=== PATIENT | female | born 1985 | race Caucasian/White ===

== ENCOUNTER 2017-09-19 13:29 | Inpatient (IN) | payer BC ==
[2017-09-19] MEDS ORDERED: Ampicillin 2 GM in Sodium Chloride 0.9% 100 ML IV ONE (17:00)
[2017-09-19] MEDS ORDERED: Nalbuphine 20 MG/ML 1 ML Syringe IVPUSH PRN (17:40)
[2017-09-19] MEDS ORDERED: Sodium Chloride 0.9% 10 ML Syringe FLUSH PRN (17:40)
[2017-09-19] MEDS ORDERED: Ondansetron 4 MG/2 ML SDV IVPUSH PRN (17:40)
[2017-09-19] MEDS ORDERED: Oxytocin/Lactated Ringers 10 UNIT/1,000 ML BAG IV SCH ×2 (17:45)
--- NOTE | 2017-09-19 17:45 | PCM.LDHP ---
L&D History of Present Illness - General Date of Service: 09/19/17 Admit Problem/Dx: Patient Status Order with Admit Dx/Problem 09/19/17 14:08 Patient Status [ADT] Routine 09/19/17 17:40 Patient Status [ADT] Routine Admission Diagnosis/Problem Admission Diagnosis/Problem complications Source of Information: Patient History Limitations: Reports: No Limitations - History of Present Illness Introduction:: Patient is a 31 y/o at 39 0/7 wks who presents for further monitoring. Called into clinic today reporting feeling unwell. Had some vision changes in the AM and general malaise. Was asked to present to clinic for further evaluation. Initial BP's in clinic were 140/100 and 148/104. She was thus sent to L&D for further monitoring. 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 LMP (Approximate): Endocrine/Metabolic History: Reports: Diabetes, Gestational Social & Family History - Tobacco Use Smoking Status *Q: Never Smoker - Alcohol Use Alcohol Use History: No - Recreational Drug Use Recreational Drug Use: No H&P Review of Systems - Review of Systems: Review Of Systems: See Below General: Reports: Malaise HEENT: Reports: Visual Changes Pulmonary: Reports: No Symptoms Cardiovascular: Reports: No Symptoms Gastrointestinal: Reports: No Symptoms Genitourinary: Reports: No Symptoms Musculoskeletal: Reports: No Symptoms Psychiatric: Reports: No Symptoms Neurological: Reports: No Symptoms L&D Exam - Exam Exam: See Below - Vital Signs Weight: 94.886 kg - OB Specific Contraction Intensity: Irritability Movement: Active Heart Tones: Present Heart Tones per Min: 135 Heart Rate (FHR) Variability: Moderate (6-25 bmp) Presentation: Vertex - Sue Score Sue Score Cervix Position: Midposition Sue Score Consistency: Soft Sue Score Effacement: 51-70% Sue Score Dilation: 1-2 cm Sue Score Infant's Station: -2 Sue Score Total: 7 - Exam General: Alert, Oriented, Cooperative Lungs: Clear to Auscultation, Normal Respiratory Effort Cardiovascular: Regular Rate, Regular Rhythm GI/Abdominal Exam: Soft, Non-Tender Genitourinary: Normal external exam Extremities: Normal Inspection Skin: Warm, Dry, Intact DTR: 2+: Patella (L), Patella (R) - Patient Data Lab Results Last 24 hrs: Laboratory Results - last 24 hr 09/19/17 09/19/17 09/19/17 Range/Units 14:20 14:20 15:31 WBC 6.32 (3.98-10.04) K/mm3 RBC 3.83 L (3.98-5.22) M/mm3 Hgb 11.9 (11.2-15.7) gm/L Hct 35.5 (34.1-44.9) % MCV 92.7 (79.4-94.8) fl MCH 31.1 (25.6-32.2) pg MCHC 33.5 (32.2-35.5) g/dl RDW Std Deviation 43.9 (36.4-46.3) fL Plt Count 185 (182-369) K/mm3 MPV 9.6 (9.4-12.3) fl Neut % (Auto) 61.2 (34.0-71.1) % Lymph % (Auto) 27.2 (19.3-51.7) % [place] % (Auto) 9.0 (4.7-12.5) % Eos % (Auto) 2.1 (0.7-5.8) Baso % (Auto) 0.2 (0.1-1.2) % Neut # (Auto) 3.87 (1.56-6.13) K/mm3 Lymph # (Auto) 1.72 (1.18-3.74) K/mm3 [place] # (Auto) 0.57 H (0.24-0.36) K/mm3 Eos # (Auto) 0.13 (0.04-0.36) K/mm3 Baso # (Auto) 0.01 (0.01-0.08) K/mm3 BUN 12 (7-18) mg/dL Creatinine 0.6 (0.55-1.02) mg/dL Est Cr Clr Drug Dosing 123.37 mL/min Estimated GFR (MDRD) > 60 (>60) mL/min Uric Acid 5.5 (2.6-6.0) mg/dL AST 30 (15-37) U/L ALT 21 (14-59) U/L Lactate Dehydrogenase 216 (81-234) U/L Urine Color Light yellow (Yellow) Urine Appearance Clear (Clear) Urine pH 7.0 (5.0-8.0) Ur Specific [place] 1.015 (1.005-1.030) Urine Protein Negative (Negative) Urine Glucose (UA) Negative (Negative) Urine Ketones Negative (Negative) Urine Occult Blood Negative (Negative) Urine Nitrite Negative (Negative) Urine Bilirubin Negative (Negative) Urine Urobilinogen 0.2 (0.2-1.0) Ur Leukocyte Esterase Negative (Negative) Result Diagrams: 09/19/17 14:20 09/19/17 14:20 - Problem List (1) 39 weeks gestation of SNOMED Code(s): 04942930 ICD Code: Z3A.39 - 39 WEEKS GESTATION OF Status: Acute Current Visit: Yes (2) Elevated blood pressure affecting in third trimester, antepartum SNOMED Code(s): 41837910, 84589272, 371508844 ICD Code: O16.3 - UNSPECIFIED MATERNAL HYPERTENSION, THIRD TRIMESTER Status : Acute Current Visit: Yes Problem List Initiated/Reviewed/Updated: Yes Orders Last 24hrs: Active Orders 24 hr Category Date Time Status Patient Status [ADT] Routine ADT 09/19/17 14:08 Active Patient Status [ADT] Routine ADT 09/19/17 17:40 Ordered Communication Order [RC] ASDIRECTED Care 09/19/17 17:40 Ordered Communication Order [RC] ASDIRECTED Care 09/19/17 17:40 Ordered Communication Order [RC] ASDIRECTED Care 09/19/17 17:40 Ordered Monitoring [RC] CONTINUOUS Care 09/19/17 14:09 Active Monitoring [RC] INTERMITTENT Care 09/19/17 17:40 Ordered Non Stress Test [RC] PER UNIT ROUTINE Care 09/19/17 14:08 Active Notify Provider [RC] ASDIRECTED Care 09/19/17 17:40 Ordered Notify Provider [RC] PRN Care 09/19/17 17:40 Ordered Peripheral IV Care [RC] . DIRECTED Care 09/19/17 17:41 Ordered Up ad Nubia [RC] ASDIRECTED Care 09/19/17 14:09 Active Up ad Nubia [RC] ASDIRECTED Care 09/19/17 17:41 Ordered Vaginal Exam [RC] ASDIRECTED Care 09/19/17 17:40 Ordered Vital Signs [RC] ASDIRECTED Care 09/19/17 17:40 Ordered Vital Signs [RC] PER UNIT ROUTINE Care 09/19/17 14:08 Active Clear Liquid Diet [DIET] Diet 09/19/17 Dinner Active Regular Diet [DIET] Diet 09/19/17 Dinner Ordered UA W/O MICROSCOPIC [URIN] Urgent Lab 09/19/17 15:31 Ordered Ampicillin 1 gm Med 09/19/17 17:45 Ordered Sodium Chloride 0.9% [Normal Saline] 100 ml IV Q4H Ampicillin 2 gm Med 09/19/17 17:40 Ordered Sodium Chloride 0.9% [Normal Saline] 100 ml IV ONETIME Lactated Ringers [Ringers, Lactated] 1,000 ml Med 09/19/17 17:45 Ordered IV ASDIRECTED Nalbuphine [Nubain] Med 09/19/17 17:40 Ordered 10 mg IVPUSH Q2H PRN Ondansetron [Zofran] Med 09/19/17 17:40 Ordered 4 mg IVPUSH Q4H PRN Oxytocin/Lactated Ringers [Pitocin in LR 10 Units/1,000 Med 09/19/17 17:45 Ordered ML] 10 unit in 1,000 ml IV .CONTINUOUS Oxytocin/Lactated Ringers [Pitocin in LR 10 Units/1,000 Med 09/19/17 17:45 Ordered ML] 10 unit in 1,000 ml IV TITRATE Oxytocin/Lactated Ringers [Pitocin in LR 10 Units/1,000 Med 09/19/17 17:45 Ordered ML] 10 unit in 1,000 ml IV TITRATE Sodium Chloride 0.9% [Saline Flush] Med 09/19/17 17:40 Ordered 10 ml FLUSH ASDIRECTED PRN PIH Panel [OM.PC] Stat Oth 06/21/18 14:08 Ordered Peripheral IV Insertion Adult [OM.PC] Routine Oth 09/19/17 17:40 Ordered Resuscitation Status Routine Resus Stat 09/19/17 14:08 Ordered Medication Orders Ampicillin Sodium 2 gm/ Sodium (Chloride) 100 mls @ 200 mls/hr IV ONETIME ONE Stop: 09/19/17 18:09 Lactated Ringer's (Ringers, Lactated) 1,000 mls @ 40 mls/hr IV ASDIRECTED SEEMA Oxytocin/Lactated Ringer's (Pitocin In Lr 10 Units/1,000 Ml) 10 unit in 1,000 mls @ 12 mls/hr IV TITRATE SEEMA; Protocol Ampicillin Sodium 1 gm/ Sodium (Chloride) 100 mls @ 200 mls/hr IV Q4H SEEMA Oxytocin/Lactated Ringer's (Pitocin In Lr 10 Units/1,000 Ml) 10 unit in 1,000 mls @ 500 mls/hr IV .CONTINUOUS SEEMA Oxytocin/Lactated Ringer's (Pitocin In Lr 10 Units/1,000 Ml) 10 unit in 1,000 mls @ 12 mls/hr IV TITRATE SEEMA; Protocol Nalbuphine HCl (Nubain) 10 mg IVPUSH Q2H PRN PRN Reason: Pain (moderate 4-6) Ondansetron HCl (Zofran) 4 mg IVPUSH Q4H PRN PRN Reason: Nausea/Vomiting Sodium Chloride (Saline Flush) 10 ml FLUSH ASDIRECTED PRN PRN Reason: Keep Vein Open Assessment/Plan Comment:: 31 y/o presents to L&D after complaints of feeling unwell in clinic and findings of mild range BP's. Labs done and WNL. BP's upper limit of normal with rare mild range BP. Reviewed findings. Feel that at this time it would be best for patient to stay for IOL. She agrees. Will start ampicillin for GBS prophylaxis and pitocin. AROM when able. Pain management per patient preference. Anticipate Laila Cho MD
[2017-09-19] MEDS: Oxytocin/Lactated Ringers 10 UNIT/1,000 ML BAG IV SCH (19:06)
[2017-09-19] MEDS: Lactated Ringers 1,000 ML IV SCH ×2 (19:06→22:39)
[2017-09-19] MEDS: Ampicillin 1 GM in Sodium Chloride 0.9% 100 ML IV SCH (23:06)
--- NOTE | 2017-09-20 00:54 | PCM.PNLD ---
Labor Progress Note - VS & Meds Vital Signs: Last Vital Signs Temp 36.9 C 09/19/17 20:18 Pulse 76 09/19/17 20:18 Resp 18 09/19/17 20:18 BP 130/65 09/19/17 20:18 Pulse Ox Active Medications: Current Medications Lactated Ringer's (Ringers, Lactated) 1,000 mls @ 40 mls/hr IV ASDIRECTED SEEMA Last Admin: 09/19/17 22:39 Dose: 40 mls/hr Oxytocin/Lactated Ringer's (Pitocin In Lr 10 Units/1,000 Ml) 10 unit in 1,000 mls @ 12 mls/hr IV TITRATE SEEMA; Protocol Last Titration: 09/19/17 23:31 Dose: 18 munits/min, 108 mls/hr Ampicillin Sodium 1 gm/ Sodium (Chloride) 100 mls @ 200 mls/hr IV Q4H SEEMA Last Admin: 09/19/17 23:06 Dose: 200 mls/hr Oxytocin/Lactated Ringer's (Pitocin In Lr 10 Units/1,000 Ml) 10 unit in 1,000 mls @ 500 mls/hr IV .CONTINUOUS SEEMA Oxytocin/Lactated Ringer's (Pitocin In Lr 10 Units/1,000 Ml) 10 unit in 1,000 mls @ 12 mls/hr IV TITRATE SEEMA; Protocol Nalbuphine HCl (Nubain) 10 mg IVPUSH Q2H PRN PRN Reason: Pain (moderate 4-6) Ondansetron HCl (Zofran) 4 mg IVPUSH Q4H PRN PRN Reason: Nausea/Vomiting Sodium Chloride (Saline Flush) 10 ml FLUSH ASDIRECTED PRN PRN Reason: Keep Vein Open Discontinued Medications Ampicillin Sodium 2 gm/ Sodium (Chloride) 100 mls @ 200 mls/hr IV ONETIME ONE Stop: 09/19/17 17:29 Last Admin: 09/19/17 19:05 Dose: 200 mls/hr - Uterine Contractions Uterine Monitoring Mode: External [place] Contraction Intensity: Mild to Moderate - Monitoring Monitor Mode: External Ultrasound Heart Rate (FHR) Baseline: 125 Heart Rate (FHR) Variability: Moderate (6-25 bmp) Accelerations: Present, 15x15 Decelerations: None Strip Review: Category I - Vaginal Exam Dilation (cm): 2-3 Effacement (Percent): 50 Station: -2 Cervical Position: Posterior - Labor Progress (Free Text) Labor Progress: Doing well. On 18 of pitocin. AROM performed with release of clear fluid. Continue present management. BP's upper limit of normal to normal.
[2017-09-20] MEDS ORDERED: fentaNYL 100 MCG/2 ML SDV EPIDUR PRN (02:50)
[2017-09-20] MEDS ORDERED: diphenhydrAMINE 50 MG/ML SDV IVPUSH PRN (02:50)
[2017-09-20] MEDS ORDERED: fentaNYL 100 MCG/2 ML SDV ONE (02:57)
[2017-09-20] MEDS ORDERED: Bupivacaine/fentaNYL/NS 100 ML Bag EPIDUR SCH (03:00)
[2017-09-20] MEDS: Lactated Ringers 1,000 ML IV SCH ×3 (03:00→05:28)
[2017-09-20] MEDS: Ampicillin 1 GM in Sodium Chloride 0.9% 100 ML IV SCH ×2 (03:00→07:05)
--- NOTE | 2017-09-20 03:20 | PCM.PREANE ---
Preanesthetic Assessment - Anesthesia/Transfusion/Family Hx Anesthesia History: Prior Anesthesia Without Reaction Family History of Anesthesia Reaction: No Transfusion History: No Prior Transfusion(s) - Review of Systems General: No Symptoms Pulmonary: No Symptoms Cardiovascular: No Symptoms Gastrointestinal: No Symptoms Neurological: No Symptoms Other: Reports: None - Physical Assessment Pulse: 86 O2 Sat by Pulse Oximetry: 98 Respiratory Rate: 18 Blood Pressure: 108/55 Temperature: 36.3 C Vital Signs: Last Vital Signs Temp 36.9 C 09/19/17 20:18 Pulse 76 09/19/17 20:18 Resp 18 09/19/17 20:18 BP 130/65 09/19/17 20:18 Pulse Ox Height: 1.65 m Weight: 94.886 kg ASA Class: 2 Mental Status: Alert & Oriented x3 Airway Class: Mallampati = 1 Dentition: Reports: Normal Dentition Thyro-Mental Finger Breadths: 3 Mouth Opening Finger Breadths: 3 ROM/Head Extension: Full Lungs: Clear to Auscultation, Normal Respiratory Effort Cardiovascular: Regular Rate, Regular Rhythm - Lab Values: Laboratory Last Values WBC 6.32 K/mm3 (3.98-10.04) 09/19/17 14:20 RBC 3.83 M/mm3 (3.98-5.22) L 09/19/17 14:20 Hgb 11.9 gm/L (11.2-15.7) 09/19/17 14:20 Hct 35.5 % (34.1-44.9) 09/19/17 14:20 MCV 92.7 fl (79.4-94.8) 09/19/17 14:20 MCH 31.1 pg (25.6-32.2) 09/19/17 14:20 MCHC 33.5 g/dl (32.2-35.5) 09/19/17 14:20 RDW Std Deviation 43.9 fL (36.4-46.3) 09/19/17 14:20 Plt Count 185 K/mm3 (182-369) 09/19/17 14:20 MPV 9.6 fl (9.4-12.3) 09/19/17 14:20 Neut % (Auto) 61.2 % (34.0-71.1) 09/19/17 14:20 Lymph % (Auto) 27.2 % (19.3-51.7) 09/19/17 14:20 [place] % (Auto) 9.0 % (4.7-12.5) 09/19/17 14:20 Eos % (Auto) 2.1 (0.7-5.8) 09/19/17 14:20 Baso % (Auto) 0.2 % (0.1-1.2) 09/19/17 14:20 Neut # (Auto) 3.87 K/mm3 (1.56-6.13) 09/19/17 14:20 Lymph # (Auto) 1.72 K/mm3 (1.18-3.74) 09/19/17 14:20 [place] # (Auto) 0.57 K/mm3 (0.24-0.36) H 09/19/17 14:20 Eos # (Auto) 0.13 K/mm3 (0.04-0.36) 09/19/17 14:20 Baso # (Auto) 0.01 K/mm3 (0.01-0.08) 09/19/17 14:20 BUN 12 mg/dL (7-18) 09/19/17 14:20 Creatinine 0.6 mg/dL (0.55-1.02) 09/19/17 14:20 Est Cr Clr Drug Dosing 123.37 mL/min 09/19/17 14:20 Estimated GFR (MDRD) > 60 mL/min (>60) 09/19/17 14:20 Uric Acid 5.5 mg/dL (2.6-6.0) 09/19/17 14:20 AST 30 U/L (15-37) 09/19/17 14:20 ALT 21 U/L (14-59) 09/19/17 14:20 Lactate Dehydrogenase 216 U/L (81-234) 09/19/17 14:20 Urine Color Light yellow (Yellow) 09/19/17 15:31 Urine Appearance Clear (Clear) 09/19/17 15:31 Urine pH 7.0 (5.0-8.0) 09/19/17 15:31 Ur Specific [place] 1.015 (1.005-1.030) 09/19/17 15:31 Urine Protein Negative (Negative) 09/19/17 15:31 Urine Glucose (UA) Negative (Negative) 09/19/17 15:31 Urine Ketones Negative (Negative) 09/19/17 15:31 Urine Occult Blood Negative (Negative) 09/19/17 15:31 Urine Nitrite Negative (Negative) 09/19/17 15:31 Urine Bilirubin Negative (Negative) 09/19/17 15:31 Urine Urobilinogen 0.2 (0.2-1.0) 09/19/17 15:31 Ur Leukocyte Esterase Negative (Negative) 09/19/17 15:31 - Allergies Allergies/Adverse Reactions: Allergies Allergy/AdvReac Type Severity Reaction Status Date / Time No Known Allergies Allergy Verified 07/26/13 20:17 - Anesthesia Plan Pre-Op Medication Ordered: None - Acknowledgements Anesthesia Type Planned: Epidural Pt an Appropriate Candidate for the Planned Anesthesia: Yes Alternatives and Risks of Anesthesia Discussed w Pt/Guardian: Yes Pt/Guardian Understands and Agrees with Anesthesia Plan: Yes PreAnesthesia Questionnaire - Past Health History Medical/Surgical History: Denies Medical/Surgical History Gastrointestinal History: Reports: GERD 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: Endocrine/Metabolic History: Reports: Diabetes, Gestational - Past Surgical History HEENT Surgical History: Reports: Oral Surgery - SUBSTANCE USE Smoking Status *Q: Never Smoker Recreational Drug Use History: No - HOME MEDS Home Medications: Home Meds Pnv No.122/Iron/Folic Acid [ Multi Tablet] 1 each PO DAILY 09/19/17 [ History] - CURRENT (IN HOUSE) MEDS Current Meds: Current Medications Diphenhydramine HCl (Benadryl) 25 mg IVPUSH Q6H PRN PRN Reason: Itching Ephedrine Sulfate (Ephedrine Sulfate) 5 mg IVPUSH ASDIRECTED PRN PRN Reason: HYPOTENTSION Fentanyl (Sublimaze) 100 mcg EPIDUR Q3H PRN PRN Reason: Pain Last Admin: 09/20/17 03:17 Dose: 100 mcg Fentanyl/Bupivacaine HCl (Fentanyl/Bupivacaine/Ns 2 Mcg-0.125% 100 Ml) 100 ml EPIDUR ASDIRECTED [facility] Last Admin: 09/20/17 03:17 Dose: 100 ml Lactated Ringer's (Ringers, Lactated) 1,000 mls @ 40 mls/hr IV ASDIRECTED SEEMA Last Admin: 09/20/17 03:00 Dose: 999 mls/hr Oxytocin/Lactated Ringer's (Pitocin In Lr 10 Units/1,000 Ml) 10 unit in 1,000 mls @ 12 mls/hr IV TITRATE SEEMA; Protocol Last Titration: 09/19/17 23:31 Dose: 18 munits/min, 108 mls/hr Ampicillin Sodium 1 gm/ Sodium (Chloride) 100 mls @ 200 mls/hr IV Q4H SEEMA Last Admin: 09/20/17 03:00 Dose: 200 mls/hr Oxytocin/Lactated Ringer's (Pitocin In Lr 10 Units/1,000 Ml) 10 unit in 1,000 mls @ 500 mls/hr IV .CONTINUOUS SEEMA Oxytocin/Lactated Ringer's (Pitocin In Lr 10 Units/1,000 Ml) 10 unit in 1,000 mls @ 12 mls/hr IV TITRATE SEEMA; Protocol Nalbuphine HCl (Nubain) 10 mg IVPUSH Q2H PRN PRN Reason: Pain (moderate 4-6) Ondansetron HCl (Zofran) 4 mg IVPUSH Q4H PRN PRN Reason: Nausea/Vomiting Sodium Chloride (Saline Flush) 10 ml FLUSH ASDIRECTED PRN PRN Reason: Keep Vein Open Discontinued Medications Fentanyl (Sublimaze) Confirm Administered Dose 100 mcg .ROUTE .STK-MED ONE Stop: 09/20/17 02:58 Ampicillin Sodium 2 gm/ Sodium (Chloride) 100 mls @ 200 mls/hr IV ONETIME ONE Stop: 09/19/17 17:29 Last Admin: 09/19/17 19:05 Dose: 200 mls/hr
[2017-09-20] MEDS ORDERED: Sodium Chloride 0.9% 10 ML ONE (03:41)
[2017-09-20] MEDS: ePHEDrine 50 MG/ML SDV IVPUSH PRN ×3 (03:51→04:06)
[2017-09-20] MEDS ORDERED: Bupivacaine 0.25% 10 ML SDV ONE (04:00)
[2017-09-20] MEDS: Oxytocin/Lactated Ringers 10 UNIT/1,000 ML BAG IV SCH (06:33)
--- NOTE | 2017-09-20 07:17 | PCM.PNLD ---
Labor Progress Note - VS & Meds Vital Signs: Last Vital Signs Temp 36.3 C 09/20/17 03:19 Pulse 86 09/20/17 03:19 Resp 18 09/20/17 03:19 BP 108/55 L 09/20/17 03:19 Pulse Ox 98 09/20/17 03:19 Active Medications: Current Medications Diphenhydramine HCl (Benadryl) 25 mg IVPUSH Q6H PRN PRN Reason: Itching Ephedrine Sulfate (Ephedrine Sulfate) 5 mg IVPUSH ASDIRECTED PRN PRN Reason: HYPOTENTSION Last Admin: 09/20/17 04:06 Dose: 5 mg Fentanyl (Sublimaze) 100 mcg EPIDUR Q3H PRN PRN Reason: Pain Last Admin: 09/20/17 03:17 Dose: 100 mcg Fentanyl/Bupivacaine HCl (Fentanyl/Bupivacaine/Ns 2 Mcg-0.125% 100 Ml) 100 ml EPIDUR ASDIRECTED SEEMA Last Admin: 09/20/17 03:17 Dose: 100 ml Lactated Ringer's (Ringers, Lactated) 1,000 mls @ 40 mls/hr IV ASDIRECTED SEEMA Last Admin: 09/20/17 05:28 Dose: 40 mls/hr Oxytocin/Lactated Ringer's (Pitocin In Lr 10 Units/1,000 Ml) 10 unit in 1,000 mls @ 12 mls/hr IV TITRATE SEEMA; Protocol Last Titration: 09/20/17 06:42 Dose: 14 munits/min, 84 mls/hr Ampicillin Sodium 1 gm/ Sodium (Chloride) 100 mls @ 200 mls/hr IV Q4H SEEMA Last Admin: 09/20/17 03:00 Dose: 200 mls/hr Oxytocin/Lactated Ringer's (Pitocin In Lr 10 Units/1,000 Ml) 10 unit in 1,000 mls @ 500 mls/hr IV .CONTINUOUS SEEMA Oxytocin/Lactated Ringer's (Pitocin In Lr 10 Units/1,000 Ml) 10 unit in 1,000 mls @ 12 mls/hr IV TITRATE SEEMA; Protocol Nalbuphine HCl (Nubain) 10 mg IVPUSH Q2H PRN PRN Reason: Pain (moderate 4-6) Ondansetron HCl (Zofran) 4 mg IVPUSH Q4H PRN PRN Reason: Nausea/Vomiting Sodium Chloride (Saline Flush) 10 ml FLUSH ASDIRECTED PRN PRN Reason: Keep Vein Open Discontinued Medications Fentanyl (Sublimaze) Confirm Administered Dose 100 mcg .ROUTE .STK-MED ONE Stop: 09/20/17 02:58 Last Admin: 09/20/17 04:25 Dose: Not Given Ampicillin Sodium 2 gm/ Sodium (Chloride) 100 mls @ 200 mls/hr IV ONETIME ONE Stop: 09/19/17 17:29 Last Admin: 09/19/17 19:05 Dose: 200 mls/hr Sodium Chloride (Normal Saline) Confirm Administered Dose 10 mls @ as directed .ROUTE .STK-MED ONE Stop: 09/20/17 03:42 Last Admin: 09/20/17 04:25 Dose: Not Given - Uterine Contractions Uterine Monitoring Mode: External [place] Contraction Intensity: Mild to Moderate - Monitoring Monitor Mode: External Ultrasound Heart Rate (FHR) Baseline: 130 Heart Rate (FHR) Variability: Moderate (6-25 bmp) Accelerations: Present, 15x15 Decelerations: None Strip Review: Category I - Vaginal Exam Dilation (cm): 6-7 Effacement (Percent): 75 Station: 0 Cervical Position: Midposition - Labor Progress (Free Text) Labor Progress: Doing well. Comfortable with epidural. Pitocin at 14. Continue present management
--- NOTE | 2017-09-20 08:33 | PCM.DEL ---
L & D Note - General Info Date of Service: 09/20/17 - Delivery Note Labor: Induced by ARM, Induced by Oxytocin Delivery Outcome: Livebirth Infant Delivery Method: Spontaneous Vaginal Delivery-Single Infant Delivery Mode: Spontaneous Presentation: Right Occiput Anterior (SHELLEY) Nuchal Cord: Present, Reduced Anesthesia Type: Epidural Amniotic Fluid Description: Clear Episiotomy Type: None Laceration: None Placenta: Intact, Spontaneous Cord: 3 Vessels Estimated Blood Loss: 350 Resuscitation Needed: Yes : Bulb Syringe, Stimulated, Warmed, [place]wl Used Score 1 min: 8 Score 5 min: 9 Delivery Comments (Free Text/Narrative):: Patient found to be complete and began pushing. With maternal pushing effort head delivered from SHELLEY presentation. Nuchal cord present and reduced. With gentle downward traction the shoulders and body delivered. placed on maternal abdomen. Cord clamped and cut. Cord blood obtained. Placenta allowed time to separate and expelled intact. Inspection of the perineum showed no lacerations - General Info Date of Service: 09/20/17 - Patient Data Vitals - Most Recent: Last Vital Signs Temp 36.3 C 09/20/17 03:19 Pulse 86 09/20/17 03:19 Resp 18 09/20/17 03:19 BP 108/55 L 09/20/17 03:19 Pulse Ox 98 09/20/17 03:19 Weight - Most Recent: 94.886 kg I&O - Last 24 Hours: Intake & Output 09/19/17 09/20/17 09/20/17 22:59 06:59 14:59 Intake Total 5300 Balance 5300 Lab Results Last 24 Hours: Laboratory Results - last 24 hr 09/19/17 09/19/17 09/19/17 Range/Units 14:20 14:20 15:31 WBC 6.32 (3.98-10.04) K/mm3 RBC 3.83 L (3.98-5.22) M/mm3 Hgb 11.9 (11.2-15.7) gm/L Hct 35.5 (34.1-44.9) % MCV 92.7 (79.4-94.8) fl MCH 31.1 (25.6-32.2) pg MCHC 33.5 (32.2-35.5) g/dl RDW Std Deviation 43.9 (36.4-46.3) fL Plt Count 185 (182-369) K/mm3 MPV 9.6 (9.4-12.3) fl Neut % (Auto) 61.2 (34.0-71.1) % Lymph % (Auto) 27.2 (19.3-51.7) % Story % (Auto) 9.0 (4.7-12.5) % Eos % (Auto) 2.1 (0.7-5.8) Baso % (Auto) 0.2 (0.1-1.2) % Neut # (Auto) 3.87 (1.56-6.13) K/mm3 Lymph # (Auto) 1.72 (1.18-3.74) K/mm3 Story # (Auto) 0.57 H (0.24-0.36) K/mm3 Eos # (Auto) 0.13 (0.04-0.36) K/mm3 Baso # (Auto) 0.01 (0.01-0.08) K/mm3 BUN 12 (7-18) mg/dL Creatinine 0.6 (0.55-1.02) mg/dL Est Cr Clr Drug Dosing 123.37 mL/min Estimated GFR (MDRD) > 60 (>60) mL/min Uric Acid 5.5 (2.6-6.0) mg/dL AST 30 (15-37) U/L ALT 21 (14-59) U/L Lactate Dehydrogenase 216 (81-234) U/L Urine Color Light yellow (Yellow) Urine Appearance Clear (Clear) Urine pH 7.0 (5.0-8.0) Ur Specific [place] 1.015 (1.005-1.030) Urine Protein Negative (Negative) Urine Glucose (UA) Negative (Negative) Urine Ketones Negative (Negative) Urine Occult Blood Negative (Negative) Urine Nitrite Negative (Negative) Urine Bilirubin Negative (Negative) Urine Urobilinogen 0.2 (0.2-1.0) Ur Leukocyte Esterase Negative (Negative) Med Orders - Current: Current Medications Diphenhydramine HCl (Benadryl) 25 mg IVPUSH Q6H PRN PRN Reason: Itching Ephedrine Sulfate (Ephedrine Sulfate) 5 mg IVPUSH ASDIRECTED PRN PRN Reason: HYPOTENTSION Last Admin: 09/20/17 04:06 Dose: 5 mg Fentanyl (Sublimaze) 100 mcg EPIDUR Q3H PRN PRN Reason: Pain Last Admin: 09/20/17 03:17 Dose: 100 mcg Fentanyl/Bupivacaine HCl (Fentanyl/Bupivacaine/Ns 2 Mcg-0.125% 100 Ml) 100 ml EPIDUR ASDIRECTED SEEMA Last Admin: 09/20/17 03:17 Dose: 100 ml Lactated Ringer's (Ringers, Lactated) 1,000 mls @ 40 mls/hr IV ASDIRECTED SEEMA Last Admin: 09/20/17 05:28 Dose: 40 mls/hr Oxytocin/Lactated Ringer's (Pitocin In Lr 10 Units/1,000 Ml) 10 unit in 1,000 mls @ 12 mls/hr IV TITRATE SEEMA; Protocol Last Titration: 09/20/17 06:42 Dose: 14 munits/min, 84 mls/hr Ampicillin Sodium 1 gm/ Sodium (Chloride) 100 mls @ 200 mls/hr IV Q4H SEEMA Last Admin: 09/20/17 07:05 Dose: 200 mls/hr Oxytocin/Lactated Ringer's (Pitocin In Lr 10 Units/1,000 Ml) 10 unit in 1,000 mls @ 500 mls/hr IV .CONTINUOUS SEEMA Oxytocin/Lactated Ringer's (Pitocin In Lr 10 Units/1,000 Ml) 10 unit in 1,000 mls @ 12 mls/hr IV TITRATE SEEMA; Protocol Nalbuphine HCl (Nubain) 10 mg IVPUSH Q2H PRN PRN Reason: Pain (moderate 4-6) Ondansetron HCl (Zofran) 4 mg IVPUSH Q4H PRN PRN Reason: Nausea/Vomiting Sodium Chloride (Saline Flush) 10 ml FLUSH ASDIRECTED PRN PRN Reason: Keep Vein Open Discontinued Medications Fentanyl (Sublimaze) Confirm Administered Dose 100 mcg .ROUTE .STK-MED ONE Stop: 09/20/17 02:58 Last Admin: 09/20/17 04:25 Dose: Not Given Ampicillin Sodium 2 gm/ Sodium (Chloride) 100 mls @ 200 mls/hr IV ONETIME ONE Stop: 09/19/17 17:29 Last Admin: 09/19/17 19:05 Dose: 200 mls/hr Sodium Chloride (Normal Saline) Confirm Administered Dose 10 mls @ as directed .ROUTE .STK-MED ONE Stop: 09/20/17 03:42 Last Admin: 09/20/17 04:25 Dose: Not Given - Problem List & Annotations (1) 39 weeks gestation of SNOMED Code(s): 19484840 Code(s): Z3A.39 - 39 WEEKS GESTATION OF Status: Acute Current Visit: Yes (2) Elevated blood pressure affecting in third trimester, antepartum SNOMED Code(s): 45109323, 58501897, 978226198 Code(s): O16.3 - UNSPECIFIED MATERNAL HYPERTENSION, THIRD TRIMESTER Status : Acute Current Visit: Yes (3) Vaginal delivery SNOMED Code(s): 730767055 Code(s): O80 - ENCOUNTER FOR FULL-TERM UNCOMPLICATED DELIVERY Status: Acute Current Visit: Yes - Problem List Review Problem List Initiated/Reviewed/Updated: Yes - My Orders Last 24 Hours: My Active Orders 09/19/17 14:08 Patient Status [ADT] Routine PIH Panel [OM.PC] Stat Resuscitation Status Routine 09/19/17 14:09 Up ad Nubia [RC] ASDIRECTED 09/19/17 15:31 UA W/O MICROSCOPIC [URIN] Urgent 09/19/17 17:40 Patient Status [ADT] Routine Communication Order [RC] ASDIRECTED Communication Order [RC] ASDIRECTED Communication Order [RC] ASDIRECTED Notify Provider [RC] ASDIRECTED Notify Provider [RC] PRN Vital Signs [RC] Q1HR Nalbuphine [Nubain] 10 mg IVPUSH Q2H PRN Ondansetron [Zofran] 4 mg IVPUSH Q4H PRN Sodium Chloride 0.9% [Saline Flush] 10 ml FLUSH ASDIRECTED PRN Peripheral IV Insertion Adult [OM.PC] Routine 09/19/17 17:41 Peripheral IV Care [RC] Q2HR Up ad Nubia [RC] ASDIRECTED 09/19/17 17:45 Lactated Ringers [Ringers, Lactated] 1,000 ml IV ASDIRECTED Oxytocin/Lactated Ringers [Pitocin in LR 10 Units/1,000 ML] 10 unit in 1,000 ml IV .CONTINUOUS Oxytocin/Lactated Ringers [Pitocin in LR 10 Units/1,000 ML] 10 unit in 1,000 ml IV TITRATE Oxytocin/Lactated Ringers [Pitocin in LR 10 Units/1,000 ML] 10 unit in 1,000 ml IV TITRATE 09/19/17 23:00 Ampicillin 1 gm Sodium Chloride 0.9% [Normal Saline] 100 ml IV Q4H 09/19/17 Dinner Clear Liquid Diet [DIET] Regular Diet [DIET] 09/20/17 08:30 Patient Status Manage Transfer [TRANSFER] Routine - Assessment Assessment:: 31 y/o G4 now P4004 PPD#0 from at 39 1/7 wks - Plan Plan:: * Routine cares * Encourage breast feeding * Discharge home in 1-2 days
[2017-09-20] MEDS ORDERED: Ibuprofen 600 MG Tab PO PRN (09:15)
[2017-09-20] MEDS ORDERED: Docusate Sodium 100 MG Cap PO PRN (09:15)
[2017-09-20] MEDS ORDERED: Witch Hazel Medicated Pads 100/Jar TOP PRN (09:15)
[2017-09-20] MEDS ORDERED: Lanolin 100% Cream 7 GM Tube TOP PRN (09:15)
[2017-09-20] MEDS ORDERED: Benzocaine/Menthol 20%-0.5% Spray 56 GM Canister TOP PRN (09:15)
[2017-09-20] MEDS ORDERED: Acetaminophen 325 MG Tab PO PRN (09:15)
--- NOTE | 2017-09-21 08:58 | PCM.PNPP ---
- General Info Date of Service: 09/21/17 Functional Status: Reports: Pain Controlled, Tolerating Diet, Ambulating, Urinating - Review of Systems General: Reports: No Symptoms HEENT: Reports: No Symptoms Gastrointestinal: Reports: No Symptoms Genitourinary: Reports: No Symptoms Neurological: Reports: No Symptoms - Patient Data Vital Signs - Most Recent: Last Vital Signs Temp 36.6 C 09/21/17 02:33 Pulse 77 09/21/17 02:33 Resp 14 09/21/17 02:33 BP 135/78 09/21/17 02:33 Pulse Ox 98 09/21/17 02:33 Weight - Most Recent: 94.886 kg I&O - Last 24 Hours: Intake & Output 09/20/17 09/21/17 09/21/17 22:59 06:59 14:59 Intake Total 0 Balance 0 Med Orders - Current: Current Medications Acetaminophen (Tylenol) 650 mg PO Q4H PRN PRN Reason: mild pain or fever Benzocaine/Menthol (Dermoplast Pain Relief [place]) 0 gm TOP ASDIRECTED PRN PRN Reason: Perineal Comfort Measure Last Admin: 09/20/17 10:16 Dose: 1 can Docusate Sodium (Colace) 100 mg PO BID PRN PRN Reason: Constipation Emollient Ointment (Lansinoh Hpa) 0 gm TOP ASDIRECTED PRN PRN Reason: Sore Nipples Ibuprofen (Motrin) 600 mg PO Q6H PRN PRN Reason: Mild pain or fever Last Admin: 09/20/17 17:56 Dose: 600 mg Witch Clair (Tucks) 1 pad TOP ASDIRECTED PRN PRN Reason: Hemorrhoid pain Last Admin: 09/20/17 10:16 Dose: 1 jar Discontinued Medications Bupivacaine HCl (Sensorcaine-Mpf 0.25%) 10 ml .ROUTE .STK-MED ONE Stop: 09/20/17 04:01 Diphenhydramine HCl (Benadryl) 25 mg IVPUSH Q6H PRN PRN Reason: Itching Ephedrine Sulfate (Ephedrine Sulfate) 5 mg IVPUSH ASDIRECTED PRN PRN Reason: HYPOTENTSION Last Admin: 09/20/17 04:06 Dose: 5 mg Fentanyl (Sublimaze) 100 mcg EPIDUR Q3H PRN PRN Reason: Pain Last Admin: 09/20/17 03:17 Dose: 100 mcg Fentanyl (Sublimaze) Confirm Administered Dose 100 mcg .ROUTE .[facility] ONE Stop: 09/20/17 02:58 Last Admin: 09/20/17 04:25 Dose: Not Given Fentanyl/Bupivacaine HCl (Fentanyl/Bupivacaine/Ns 2 Mcg-0.125% 100 Ml) 100 ml EPIDUR ASDIRECTED SEEMA Last Admin: 09/20/17 03:17 Dose: 100 ml Ampicillin Sodium 2 gm/ Sodium (Chloride) 100 mls @ 200 mls/hr IV ONETIME ONE Stop: 09/19/17 17:29 Last Admin: 09/19/17 19:05 Dose: 200 mls/hr Lactated Ringer's (Ringers, Lactated) 1,000 mls @ 40 mls/hr IV ASDIRECTED SEEMA Last Admin: 09/20/17 05:28 Dose: 40 mls/hr Oxytocin/Lactated Ringer's (Pitocin In Lr 10 Units/1,000 Ml) 10 unit in 1,000 mls @ 12 mls/hr IV TITRATE SEEMA; Protocol Last Titration: 09/20/17 06:42 Dose: 14 munits/min, 84 mls/hr Ampicillin Sodium 1 gm/ Sodium (Chloride) 100 mls @ 200 mls/hr IV Q4H SEEMA Last Admin: 09/20/17 07:05 Dose: 200 mls/hr Oxytocin/Lactated Ringer's (Pitocin In Lr 10 Units/1,000 Ml) 10 unit in 1,000 mls @ 500 mls/hr IV .CONTINUOUS SEEMA Oxytocin/Lactated Ringer's (Pitocin In Lr 10 Units/1,000 Ml) 10 unit in 1,000 mls @ 12 mls/hr IV TITRATE SEEMA; Protocol Sodium Chloride (Normal Saline) Confirm Administered Dose 10 mls @ as directed .ROUTE .[employer] ONE Stop: 09/20/17 03:42 Last Admin: 09/20/17 04:25 Dose: Not Given Nalbuphine HCl (Nubain) 10 mg IVPUSH Q2H PRN PRN Reason: Pain (moderate 4-6) Ondansetron HCl (Zofran) 4 mg IVPUSH Q4H PRN PRN Reason: Nausea/Vomiting Sodium Chloride (Saline Flush) 10 ml FLUSH ASDIRECTED PRN PRN Reason: Keep Vein Open - Interaction Disposition, : [place] in Room with Family Infant Interaction: Holding Infant Feeding: Breastfed Infant; Nursed Well Support Person: - Recovery Exam Fundal Tone: Firm Fundal Level: At Umbilicus Fundal Placement: Midline Lochia Amount: Small Lochia Color: Rubra/Red Perineum Description: Intact, Minimal Bruising/Swelling Episiotomy/Laceration: None Bladder Status: Voiding Urinary Elimination: Voided - Exam General: Alert, Oriented, Cooperative GI/Abdominal Exam: Soft, Non-Tender Extremities: Normal Inspection Skin: Warm, Dry, Intact - Problem List & Annotations (1) 39 weeks gestation of SNOMED Code(s): 87225909 Code(s): Z3A.39 - 39 WEEKS GESTATION OF Status: Acute Current Visit: Yes (2) Elevated blood pressure affecting in third trimester, antepartum SNOMED Code(s): 57324722, 84997391, 573653891 Code(s): O16.3 - UNSPECIFIED MATERNAL HYPERTENSION, THIRD TRIMESTER Status : Acute Current Visit: Yes (3) Vaginal delivery SNOMED Code(s): 274803631 Code(s): O80 - ENCOUNTER FOR FULL-TERM UNCOMPLICATED DELIVERY Status: Acute Current Visit: Yes - Problem List Review Problem List Initiated/Reviewed/Updated: Yes - My Orders Last 24 Hours: My Active Orders 09/20/17 09:15 Activity as Tolerated [RC] PER UNIT ROUTINE Vital Signs [RC] Q4HR Acetaminophen [Tylenol] 650 mg PO Q4H PRN Benzocaine/Menthol [Dermoplast Pain Relief [place]] See Dose Instructions TOP ASDIRECTED PRN Docusate Sodium [Colace] 100 mg PO BID PRN Ibuprofen [Motrin] 600 mg PO Q6H PRN Lanolin [Lansinoh HPA] See Dose Instructions TOP ASDIRECTED PRN Witch Clair [Tucks] 1 pad TOP ASDIRECTED PRN Assess Lochia [WOMSER] Per Unit Routine Assess Uterine Involution [WOMSER] Per Unit Routine Breast Pump [WOMSER] Per Unit Routine Heat Therapy [OM.PC] PRN Ice Therapy [OM.PC] Per Unit Routine Perineal Care [OM.PC] Per Unit Routine Peripheral IV Discontinue [OM.PC] Routine Sitz Bath [OM.PC] Per Unit Routine 09/21/17 09:15 Heat Therapy [OM.PC] PRN - Assessment Assessment:: 31 y/o G4 now P4004 PPD#1 from at 39 1/7 wks - Plan Plan:: * Routine cares * Encourage breast feeding * Had now several mild range BP's since delivery. No symptoms of preeclampsia. Will discharge home today with plans for follow up in clinic in 1 week * Discharge home today
--- NOTE | 2017-09-21 09:02 | PCM.DCSUM1 ---
Discharge Summary - Discharge Data Discharge Date: 09/21/17 Discharge Disposition: Home, Self-Care 01 Condition: Good - Discharge Diagnosis/Problem(s) (1) 39 weeks gestation of SNOMED Code(s): 34125057 ICD Code: Z3A.39 - 39 WEEKS GESTATION OF Status: Acute Current Visit: Yes (2) Elevated blood pressure affecting in third trimester, antepartum SNOMED Code(s): 99694826, 71120405, 197349557 ICD Code: O16.3 - UNSPECIFIED MATERNAL HYPERTENSION, THIRD TRIMESTER Status : Acute Current Visit: Yes (3) Vaginal delivery SNOMED Code(s): 085318414 ICD Code: O80 - ENCOUNTER FOR FULL-TERM UNCOMPLICATED DELIVERY Status: Acute Current Visit: Yes - Patient Summary/Data Complications: None Consults: None Recommended Follow-up Testing/Procedures: Follow up in 1-2 weeks for BP check Hospital Course: Patient is a 31 y/o who presented to clinic at 39 0/7 wks with findings of mild range BP's. She was sent to L&D where IOL was begun with pitocin and AROM. She progressed well to complete dilation and underwent an uncomplicated . See delivery note for full details. her BP's remained mild range and normal range. She was otherwise feeling well and so was discharged to home on PPD#1 with plans to follow up in clinic in 1-2 weeks for a BP check - Patient Instructions Diet: Regular Diet as Tolerated Activity: As Tolerated Activity, Other: Pelvic Rest for 6 weeks Driving: May Drive Today Showering/Bathing: May Shower Showering/Bathing, Other: May Bathe Notify Provider of: Fever, Increased Pain, Swelling and Redness, Drainage, Nausea and/or Vomiting - Discharge Plan Home Medications: Home Meds Pnv No.122/Iron/Folic Acid [ Multi Tablet] 1 each PO DAILY 09/19/17 [ History] Docusate Sodium [Colace] 100 mg PO BID PRN cap 09/21/17 [Rx] Ibuprofen [Motrin] 600 mg PO Q6H PRN tablet 09/21/17 [Rx] Referrals: Laila Cho MD [Primary Care Provider] - (1-2 weeks for BP check ) - Discharge Summary/Plan Comment DC Time >30 min.: No - Patient Data Vitals - Most Recent: Last Vital Signs Temp 36.6 C 09/21/17 02:33 Pulse 77 09/21/17 02:33 Resp 14 09/21/17 02:33 BP 135/78 09/21/17 02:33 Pulse Ox 98 09/21/17 02:33 Weight - Most Recent: 94.886 kg I&O - Last 24 hours: Intake & Output 09/20/17 09/21/17 09/21/17 22:59 06:59 14:59 Intake Total 0 Balance 0 Med Orders - Current: Current Medications Acetaminophen (Tylenol) 650 mg PO Q4H PRN PRN Reason: mild pain or fever Benzocaine/Menthol (Dermoplast Pain Relief [place]) 0 gm TOP ASDIRECTED PRN PRN Reason: Perineal Comfort Measure Last Admin: 09/20/17 10:16 Dose: 1 can Docusate Sodium (Colace) 100 mg PO BID PRN PRN Reason: Constipation Emollient Ointment (Lansinoh Hpa) 0 gm TOP ASDIRECTED PRN PRN Reason: Sore Nipples Ibuprofen (Motrin) 600 mg PO Q6H PRN PRN Reason: Mild pain or fever Last Admin: 09/20/17 17:56 Dose: 600 mg Witch Clair (Tucks) 1 pad TOP ASDIRECTED PRN PRN Reason: Hemorrhoid pain Last Admin: 09/20/17 10:16 Dose: 1 jar Discontinued Medications Bupivacaine HCl (Sensorcaine-Mpf 0.25%) 10 ml .ROUTE .STK-MED ONE Stop: 09/20/17 04:01 Diphenhydramine HCl (Benadryl) 25 mg IVPUSH Q6H PRN PRN Reason: Itching Ephedrine Sulfate (Ephedrine Sulfate) 5 mg IVPUSH ASDIRECTED PRN PRN Reason: HYPOTENTSION Last Admin: 09/20/17 04:06 Dose: 5 mg Fentanyl (Sublimaze) 100 mcg EPIDUR Q3H PRN PRN Reason: Pain Last Admin: 09/20/17 03:17 Dose: 100 mcg Fentanyl (Sublimaze) Confirm Administered Dose 100 mcg .ROUTE .STK-MED ONE Stop: 09/20/17 02:58 Last Admin: 09/20/17 04:25 Dose: Not Given Fentanyl/Bupivacaine HCl (Fentanyl/Bupivacaine/Ns 2 Mcg-0.125% 100 Ml) 100 ml EPIDUR ASDIRECTED SEEMA Last Admin: 09/20/17 03:17 Dose: 100 ml Ampicillin Sodium 2 gm/ Sodium (Chloride) 100 mls @ 200 mls/hr IV ONETIME ONE Stop: 09/19/17 17:29 Last Admin: 09/19/17 19:05 Dose: 200 mls/hr Lactated Ringer's (Ringers, Lactated) 1,000 mls @ 40 mls/hr IV ASDIRECTED SEEMA Last Admin: 09/20/17 05:28 Dose: 40 mls/hr Oxytocin/Lactated Ringer's (Pitocin In Lr 10 Units/1,000 Ml) 10 unit in 1,000 mls @ 12 mls/hr IV TITRATE SEEMA; Protocol Last Titration: 09/20/17 06:42 Dose: 14 munits/min, 84 mls/hr Ampicillin Sodium 1 gm/ Sodium (Chloride) 100 mls @ 200 mls/hr IV Q4H SEEMA Last Admin: 09/20/17 07:05 Dose: 200 mls/hr Oxytocin/Lactated Ringer's (Pitocin In Lr 10 Units/1,000 Ml) 10 unit in 1,000 mls @ 500 mls/hr IV .CONTINUOUS SEEMA Oxytocin/Lactated Ringer's (Pitocin In Lr 10 Units/1,000 Ml) 10 unit in 1,000 mls @ 12 mls/hr IV TITRATE SEEMA; Protocol Sodium Chloride (Normal Saline) Confirm Administered Dose 10 mls @ as directed .ROUTE .STK-MED ONE Stop: 09/20/17 03:42 Last Admin: 09/20/17 04:25 Dose: Not Given Nalbuphine HCl (Nubain) 10 mg IVPUSH Q2H PRN PRN Reason: Pain (moderate 4-6) Ondansetron HCl (Zofran) 4 mg IVPUSH Q4H PRN PRN Reason: Nausea/Vomiting Sodium Chloride (Saline Flush) 10 ml FLUSH ASDIRECTED PRN PRN Reason: Keep Vein Open
[2017-09-21 11:02] VITALS: BP 140/92
--- NOTE | 2017-09-21 12:25 | PCM48HPAN ---
Post Anesthesia Note - EVALUATION WITHIN 48HRS OF ANESTHETIC Vital Signs in Normal Range: Yes Patient Participated in Evaluation: Yes Respiratory Function Stable: Yes Airway Patent: Yes Cardiovascular Function Stable: Yes Hydration Status Stable: Yes Pain Control Satisfactory: Yes Nausea and Vomiting Control Satisfactory: Yes Mental Status Recovered: Yes
== END 2017-09-21 13:40 | disposition home or self-care (01) | DRG 560 ==
LOC: JD.OBCHECK 13:29 → JD.OB 13:31 → JD.OBCHECK 17:39 → JD.OB 17:40 → OBSVTOIN 09-20 08:30 → JD.OB 09-20 08:51
PROVIDERS: ADMIT Obstetrics & Gynecology; ATTEND Obstetrics & Gynecology
PROC: 6A550ZT Pheresis of Cord Blood Stem Cells, Single (ICD-10-PCS; principal; 2017-09-20)
PROC: 10907ZC Drainage of Amniotic Fluid, Therapeutic from Products of Conception, Via Natural or Artificial Opening (ICD-10-PCS; principal; 2017-09-20)
PROC: 3E033VJ Introduction of Other Hormone into Peripheral Vein, Percutaneous Approach (ICD-10-PCS; principal; 2017-09-20)
PROC: 10E0XZZ Delivery of Products of Conception, External Approach (ICD-10-PCS; principal; 2017-09-20)
PROC: 3E0R3BZ Introduction of Anesthetic Agent into Spinal Canal, Percutaneous Approach (ICD-10-PCS; 2017-09-20)
PROC: 00HU33Z Insertion of Infusion Device into Spinal Canal, Percutaneous Approach (ICD-10-PCS; 2017-09-20)
DX: O16.4 Unspecified maternal hypertension, complicating childbirth (principal); O99.824 Streptococcus B carrier state complicating childbirth; O69.81X0 Labor and delivery complicated by cord around neck, without compression, not applicable or unspecified; Z3A.39 39 weeks gestation of pregnancy; Z37.0 Single live birth
CPT/HCPCS: 36415; 51702; 59025; 59409; 81003; 82565; 83615; 84450; 84460; 84520; 84550; 85025; A9270-GY; J0290; J2590; J3010; J7030; J7120

== ENCOUNTER 2020-02-15 14:37 | Inpatient (IN) | payer BC ==
[2020-02-15] MEDS ORDERED: Ondansetron 4 MG/2 ML SDV IVPUSH PRN (14:59)
[2020-02-15] MEDS ORDERED: Sodium Chloride 0.9% 10 ML Syringe FLUSH PRN (14:59)
[2020-02-15] MEDS ORDERED: Nalbuphine 10 MG/1 ML Vial IVPUSH PRN (14:59)
[2020-02-15] MEDS ORDERED: Oxytocin/Lactated Ringers 10 UNIT/1,000 ML BAG IV SCH ×2 (15:00)
--- NOTE | 2020-02-15 15:02 | PCM.LDHP ---
L&D History of Present Illness - General Date of Service: 02/15/20 Admit Problem/Dx: Patient Status Order with Admit Dx/Problem 02/15/20 14:59 Patient Status [ADT] Routine Admission Diagnosis/Problem Admission Diagnosis/Problem Gestational hypertension Source of Information: Patient History Limitations: Reports: No Limitations - History of Present Illness Introduction:: Patient is a 34 y/o at 38 5/7 wks who presents for IOL for findings of mild range BP's in clinic today . Doing well otherwise. No headaches, vision changes, or RUQ pain. - Related Data Allergies/Adverse Reactions: Allergies Allergy/AdvReac Type Severity Reaction Status Date / Time No Known Allergies Allergy Verified 02/15/20 17:01 Home Medications: Home Meds No122/Iron/Folic Acid [ Multi Tablet] 1 each PO DAILY 09/19/17 [History] Ferrous Gluconate [Iron] 236 mg PO DAILY 02/15/20 [History] [employer]-3/DHA/Epa/Fish Oil [Fish Oil 1,000 mg Softgel] 1 each PO DAILY 02/15/20 [History] Past Medical History Cardiovascular History: Reports: Other (See Below) (Hx of gestational HTN 2017) Gastrointestinal History: Reports: GERD [employer]ER History: Reports: : 5 Para: 4 LMP (Approximate): Endocrine/Metabolic History: Reports: Diabetes, Gestational (2011) - Past Surgical History HEENT Surgical History: Reports: Oral Surgery Social & Family History - Family History Family Medical History: No Pertinent Family History - Tobacco Use Tobacco Use Status *Q: Never Tobacco User - Caffeine Use Caffeine Use: Reports: None - Alcohol Use Alcohol Use History: No - Recreational Drug Use Recreational Drug Use: No H&P Review of Systems - Review of Systems: Review Of Systems: See Below General: Reports: No Symptoms Pulmonary: Reports: No Symptoms Cardiovascular: Reports: No Symptoms Gastrointestinal: Reports: No Symptoms Genitourinary: Reports: No Symptoms Musculoskeletal: Reports: No Symptoms Psychiatric: Reports: No Symptoms L&D Exam - Exam Exam: See Below - Vital Signs Vital Signs: Last Vital Signs Temp Pulse 82 02/15/20 14:48 Resp 16 02/15/20 14:48 BP 128/88 02/15/20 14:48 Pulse Ox Weight: 88.451 kg - OB Specific Movement: Active Heart Tones: Present Heart Tones per Min: 135 Heart Rate (FHR) Variability: Moderate (6-25 bmp) Presentation: Vertex - Sue Score Sue Score Cervix Position: Midposition Sue Score Consistency: Medium Sue Score Effacement: 31-50% Sue Score Dilation: 1-2 cm Sue Score Infant's Station: -2 Sue Score Total: 5 - Exam General: Alert, Oriented, Cooperative Lungs: Clear to Auscultation, Normal Respiratory Effort Cardiovascular: Regular Rate, Regular Rhythm GI/Abdominal Exam: Soft, Non-Tender Genitourinary: Normal external exam Back Exam: Normal Inspection Extremities: Normal Inspection - Patient Data Result Diagrams: 02/15/20 15:13 02/15/20 15:13 - Problem List (1) 38 weeks gestation of SNOMED Code(s): 81594387 ICD Code: Z3A.38 - 38 WEEKS GESTATION OF Status: Acute Current Visit: Yes (2) Gestational hypertension SNOMED Code(s): 455518318 ICD Code: O13.9 - GESTATIONAL HTN W/O SIGNIFICANT PROTEINURIA, UNSP TRIMESTER Status: Acute Current Visit: Yes Qualifiers: Trimester: third trimester Qualified Code(s): O13.3 - Gestational [-induced] hypertension without significant proteinuria, third trimester Problem List Initiated/Reviewed/Updated: Yes Orders Last 24hrs: Active Orders 24 hr Category Date Time Status Patient Status [ADT] Routine ADT 02/15/20 14:59 Ordered Communication Order [RC] ASDIRECTED Care 02/15/20 14:59 Ordered Communication Order [RC] ASDIRECTED Care 02/15/20 14:59 Ordered Communication Order [RC] ASDIRECTED Care 02/15/20 14:59 Ordered Heart Tones [RC] ASDIRECTED Care 02/15/20 15:00 Ordered Monitoring [RC] INTERMITTENT Care 02/15/20 14:59 Ordered Non Stress Test [RC] PER UNIT ROUTINE Care 02/15/20 14:59 Ordered Notify Provider [RC] ASDIRECTED Care 02/15/20 14:59 Ordered Notify Provider [RC] PRN Care 02/15/20 14:59 Ordered Peripheral IV Care [RC] . DIRECTED Care 02/15/20 15:00 Ordered Up ad Nubia [RC] ASDIRECTED Care 02/15/20 15:00 Ordered Vital Signs [RC] ASDIRECTED Care 02/15/20 14:59 Ordered Regular Diet [DIET] Diet 02/15/20 Dinner Ordered ALANINE AMINOTRANSFERASE,ALT [CHEM] Routine Lab 02/15/20 14:59 Ordered ASPARTATE AMNIOTRANSFERASE,AST [CHEM] Routine Lab 02/15/20 14:59 Ordered CBC W/O DIFF,HEMOGRAM [HEME] Stat Lab 02/15/20 14:59 Ordered CORONAVIRUS COVID-19 ANNI [MOLEC] Stat Lab 02/15/20 15:01 Ordered CREATININE W/GFR [CHEM] Stat Lab 02/15/20 14:59 Ordered PROTEIN/CREATININE RATIO,URINE [URCHEM] Routine Lab 02/15/20 14:59 Ordered RAPID PLASMA REAGIN,RPR [CHEM] Routine Lab 02/15/20 14:59 Ordered TYPE AND SCREEN [BBK] Stat Lab 02/15/20 14:59 Ordered Lactated Ringers [Ringers, Lactated] 1,000 ml Med 02/15/20 15:00 Ordered IV ASDIRECTED Nalbuphine [Nubain] Med 02/15/20 14:59 Ordered 10 mg IVPUSH Q2H PRN Ondansetron [Zofran] Med 02/15/20 14:59 Ordered 4 mg IVPUSH Q4H PRN Oxytocin/Lactated Ringers [Pitocin in LR 10 Units/1,000 Med 02/15/20 15:00 Ordered ML] 10 unit in 1,000 ml IV .CONTINUOUS Oxytocin/Lactated Ringers [Pitocin in LR 10 Units/1,000 Med 02/15/20 15:00 Ordered ML] 10 unit in 1,000 ml IV TITRATE Sodium Chloride 0.9% [Saline Flush] Med 02/15/20 14:59 Ordered 10 ml FLUSH ASDIRECTED PRN Electronic Heart Tones Ext w TOCO [WOMSER] Oth 02/15/20 14:59 Ordered Routine Electronic Heart Tones Internal [WOMSER] Per Unit Oth 02/15/20 14:59 Ordered Routine Peripheral IV Insertion Adult [OM.PC] Routine Oth 02/15/20 14:59 Ordered Resuscitation Status Routine Resus Stat 02/15/20 14:59 Ordered Assessment/Plan Comment:: * Labs done and normal * GBS negative, no need for antibiotics * Patient strongly prefers cytotec over pitocin IOL. Done * Pain management per patient preference * Anticipate
[2020-02-15] MEDS ORDERED: Misoprostol 25 MCG (1/4 of 100 MCG) Tab ONE (16:36)
[2020-02-15] MEDS ORDERED: Misoprostol 25 MCG (1/4 of 100 MCG) Tab PO ONE (20:30)
[2020-02-15] MEDS: Misoprostol 25 MCG (1/4 of 100 MCG) Tab VAG SCH (20:43)
[2020-02-15] MEDS: Lactated Ringers 1,000 ML IV SCH (21:41)
[2020-02-16] MEDS: Misoprostol 25 MCG (1/4 of 100 MCG) Tab VAG SCH (03:02)
[2020-02-16] MEDS: Lactated Ringers 1,000 ML IV SCH (03:41)
--- NOTE | 2020-02-16 07:07 | PCM.PNLD ---
Labor Progress Note - VS & Meds Vital Signs: Last Vital Signs Temp 37.3 C 02/15/20 14:59 Pulse 82 02/15/20 14:48 Resp 14 02/15/20 14:59 BP 124/72 02/15/20 14:59 Pulse Ox 100 02/15/20 14:59 Active Medications: Current Medications Oxytocin/Lactated Ringer's (Pitocin In Lr 10 Units/1,000 Ml) 10 unit in 1,000 mls @ 12 mls/hr IV TITRATE SEEMA; Protocol Last Titration: 02/16/20 06:30 Dose: 8 munits/min, 48 mls/hr Documented by: Oxytocin/Lactated Ringer's (Pitocin In Lr 10 Units/1,000 Ml) 10 unit in 1,000 mls @ 500 mls/hr IV .CONTINUOUS SEEMA Lactated Ringer's (Ringers, Lactated) 1,000 mls @ 40 mls/hr IV ASDIRECTED SEEMA Last Admin: 02/16/20 03:41 Dose: 40 mls/hr Documented by: Nalbuphine HCl (Nubain) 10 mg IVPUSH Q2H PRN PRN Reason: Pain Ondansetron HCl (Zofran) 4 mg IVPUSH Q4H PRN PRN Reason: Nausea/Vomiting Sodium Chloride (Saline Flush) 10 ml FLUSH ASDIRECTED PRN PRN Reason: Keep Vein Open Discontinued Medications Misoprostol (Cytotec) Confirm Administered Dose 25 mcg .ROUTE .STK-MED ONE Stop: 02/15/20 16:37 Last Admin: 02/15/20 16:40 Dose: 25 mcg Documented by: Misoprostol (Cytotec) 25 mcg PO ONETIME ONE Stop: 02/15/20 20:31 Misoprostol (Cytotec) 25 mcg VAG Q4H SEEMA Stop: 02/16/20 00:31 Last Admin: 02/16/20 03:02 Dose: Not Given Documented by: - Uterine Contractions Uterine Monitoring Mode: External [place] Contraction Intensity: Mild to Moderate - Monitoring Monitor Mode: External Ultrasound Heart Rate (FHR) Baseline: 140 Heart Rate (FHR) Variability: Moderate (6-25 bmp) Accelerations: Present, 15x15 Decelerations: None Strip Review: Category I - Vaginal Exam Dilation (cm): 3-4 Effacement (Percent): 65 Station: -3 Cervical Position: Midposition - Labor Progress (Free Text) Labor Progress: Patient with 2 doses of cytotec overnight. Pitocin started around 0300. Currently at 8. States contractions mild to slightly stronger. BPs normal to mild range overnight. Reviewed options going forward. Patient agreeable with AROM. Done with release of clear fluid
[2020-02-16] MEDS ORDERED: ePHEDrine 50 MG/ML SDV IVPUSH PRN (07:44)
[2020-02-16] MEDS ORDERED: Bupivacaine/fentaNYL/NS 100 ML Bag EPIDUR PRN (07:44)
[2020-02-16] MEDS ORDERED: diphenhydrAMINE 50 MG/ML SDV IVPUSH PRN (07:44)
[2020-02-16] MEDS ORDERED: fentaNYL 100 MCG/2 ML SDV EPIDUR PRN (07:44)
--- NOTE | 2020-02-16 09:05 | PCM.DEL ---
L & D Note - General Info Date of Service: 02/16/20 - Delivery Note Labor: Induced by ARM, Induced by Oxytocin Cervical Ripening Method: Misoprostil Delivery Outcome: Livebirth Delivery Method: Spontaneous Vaginal Delivery-Single Infant Delivery Mode: Spontaneous Presentation: Left Occiput Anterior (JERI) Nuchal Cord: Present Anesthesia Type: None Amniotic Fluid Description: Clear Episiotomy Type: None Laceration: None Placenta: Intact, Spontaneous Cord: 3 Vessels Estimated Blood Loss: 400 Resuscitation Needed: Yes [place]: Bulb Syringe, Stimulated, Warmed, [place] Used Delivery Comments (Free Text/Narrative):: Patient found to be complete and began pushing. With maternal pushing effort head delivered from an JERI presentation. Nuchal cord present, but baby delivered quickly though with minimal downward pressure on shoulders. Infant placed on maternal abdomen. Cord clamped and cut. Cord blood obtained. Placenta allowed time to separate and expelled intact. Inspection of perineum showed no lacerations - General Info Date of Service: 02/16/20 - Patient Data Vitals - Most Recent: Last Vital Signs Temp 37.3 C 02/15/20 14:59 Pulse 82 02/15/20 14:48 Resp 14 02/15/20 14:59 BP 124/72 02/15/20 14:59 Pulse Ox 100 02/15/20 14:59 Weight - Most Recent: 88.451 kg - Problem List & Annotations (1) 38 weeks gestation of SNOMED Code(s): 22160835 Code(s): Z3A.38 - 38 WEEKS GESTATION OF Status: Acute Current Visit: Yes (2) Gestational hypertension SNOMED Code(s): 973268178 Code(s): O13.9 - GESTATIONAL HTN W/O SIGNIFICANT PROTEINURIA, UNSP TRIMESTER Status: Acute Current Visit: Yes Qualifiers: Trimester: third trimester Qualified Code(s): O13.3 - Gestational [-induced] hypertension without significant proteinuria, third trimester (3) Vaginal delivery SNOMED Code(s): 309684667 Code(s): O80 - ENCOUNTER FOR FULL-TERM UNCOMPLICATED DELIVERY Status: Acute Current Visit: No - Problem List Review Problem List Initiated/Reviewed/Updated: Yes - My Orders Last 24 Hours: My Active Orders 02/15/20 14:59 Patient Status [ADT] Routine Communication Order [RC] ASDIRECTED Communication Order [RC] ASDIRECTED Communication Order [RC] ASDIRECTED Monitoring [RC] INTERMITTENT Non Stress Test [RC] PER UNIT ROUTINE Notify Provider [RC] ASDIRECTED Notify Provider [RC] PRN Vital Signs [RC] ASDIRECTED Nalbuphine [Nubain] 10 mg IVPUSH Q2H PRN Ondansetron [Zofran] 4 mg IVPUSH Q4H PRN Sodium Chloride 0.9% [Saline Flush] 10 ml FLUSH ASDIRECTED PRN Electronic Heart Tones Ext w TOCO [WOMSER] Routine Electronic Heart Tones Internal [WOMSER] Per Unit Routine Peripheral IV Insertion Adult [OM.PC] Routine Resuscitation Status Routine 02/15/20 15:00 Heart Tones [RC] ASDIRECTED Peripheral IV Care [RC] . DIRECTED Up ad Nubia [RC] ASDIRECTED Lactated Ringers [Ringers, Lactated] 1,000 ml IV ASDIRECTED Oxytocin/Lactated Ringers [Pitocin in LR 10 Units/1,000 ML] 10 unit in 1,000 ml IV .CONTINUOUS Oxytocin/Lactated Ringers [Pitocin in LR 10 Units/1,000 ML] 10 unit in 1,000 ml IV TITRATE 02/15/20 Dinner Regular Diet [DIET] 02/15/20 17:07 Communication Order [RC] ASDIRECTED - Assessment Assessment:: PPD#0 - Plan Plan:: * Routine cares * Breast feeding * Monitor BP's closely * Discharge home in 1-2 days
[2020-02-16] MEDS ORDERED: Benzocaine/Menthol 20%-0.5% Spray 56 GM Canister TOP PRN (10:09)
[2020-02-16] MEDS ORDERED: Acetaminophen 325 MG Tab PO PRN (10:09)
[2020-02-16] MEDS ORDERED: Ibuprofen 600 MG Tab PO PRN (10:09)
[2020-02-16] MEDS ORDERED: Witch Hazel Medicated Pads 40/Jar TOP PRN (10:09)
--- NOTE | 2020-02-17 07:04 | PCM.PNPP ---
- General Info Date of Service: 02/17/20 Functional Status: Reports: Pain Controlled, Tolerating Diet, Ambulating, Urinating - Review of Systems General: Reports: No Symptoms Pulmonary: Reports: No Symptoms Cardiovascular: Reports: No Symptoms Gastrointestinal: Reports: No Symptoms Genitourinary: Reports: No Symptoms Musculoskeletal: Reports: No Symptoms Neurological: Reports: No Symptoms - Patient Data Vital Signs - Most Recent: Last Vital Signs Temp 36.9 C 02/17/20 03:23 Pulse 64 02/17/20 03:23 Resp 14 02/17/20 03:23 BP 115/70 02/17/20 03:23 Pulse Ox 99 02/17/20 03:23 Weight - Most Recent: 88.451 kg Med Orders - Current: Current Medications Acetaminophen (Tylenol) 650 mg PO Q4H PRN PRN Reason: mild pain or fever Benzocaine/Menthol (Dermoplast Pain Relief [place]) 0 gm TOP ASDIRECTED PRN PRN Reason: Perineal Comfort Measure Ibuprofen (Motrin) 600 mg PO Q6H PRN PRN Reason: Mild pain or fever Last Admin: 02/16/20 18:05 Dose: 600 mg Documented by: [facility]) 1 pad TOP ASDIRECTED PRN PRN Reason: Perineal Comfort Measure Discontinued Medications Diphenhydramine HCl (Benadryl) 25 mg IVPUSH Q6H PRN PRN Reason: pruritis Ephedrine Sulfate (Ephedrine Sulfate) 5 mg IVPUSH ASDIRECTED PRN PRN Reason: Hypotension Fentanyl (Sublimaze) 100 mcg EPIDUR Q3H PRN PRN Reason: Pain Fentanyl/Bupivacaine HCl (Fentanyl/Bupivacaine/Ns 2 Mcg-0.125% 100 Ml) 100 ml EPIDUR ASDIRECTED PRN PRN Reason: Pain Oxytocin/Lactated Ringer's (Pitocin In Lr 10 Units/1,000 Ml) 10 unit in 1,000 mls @ 12 mls/hr IV TITRATE SEEMA; Protocol Last Titration: 02/16/20 08:00 Dose: 9 munits/min, 54 mls/hr Documented by: Oxytocin/Lactated Ringer's (Pitocin In Lr 10 Units/1,000 Ml) 10 unit in 1,000 mls @ 500 mls/hr IV .CONTINUOUS SEEMA Lactated Ringer's (Ringers, Lactated) 1,000 mls @ 40 mls/hr IV ASDIRECTED SEEMA Last Admin: 02/16/20 03:41 Dose: 40 mls/hr Documented by: Misoprostol (Cytotec) Confirm Administered Dose 25 mcg .ROUTE .STK-MED ONE Stop: 02/15/20 16:37 Last Admin: 02/15/20 16:40 Dose: 25 mcg Documented by: Misoprostol (Cytotec) 25 mcg PO ONETIME ONE Stop: 02/15/20 20:31 Misoprostol (Cytotec) 25 mcg VAG Q4H SEEMA Stop: 02/16/20 00:31 Last Admin: 02/16/20 03:02 Dose: Not Given Documented by: Nalbuphine HCl (Nubain) 10 mg IVPUSH Q2H PRN PRN Reason: Pain Last Admin: 02/16/20 07:12 Dose: 10 mg Documented by: Ondansetron HCl (Zofran) 4 mg IVPUSH Q4H PRN PRN Reason: Nausea/Vomiting Sodium Chloride (Saline Flush) 10 ml FLUSH ASDIRECTED PRN PRN Reason: Keep Vein Open - Interaction Disposition, : in Room with Family Interaction: Holding Feeding: Breastfed Infant; Nursed Well Support Person: - Recovery Exam Fundal Tone: Firm Fundal Level: At Umbilicus Fundal Placement: Midline Lochia Amount: Small Lochia Color: Rubra/Red Perineum Description: Intact, Minimal Bruising/Swelling Episiotomy/Laceration: None Bladder Status: Voiding Urinary Elimination: Voided - Exam General: Alert, Oriented, Cooperative GI/Abdominal Exam: Soft, Non-Tender Extremities: Normal Inspection Skin: Warm, Dry, Intact - Problem List & Annotations (1) 38 weeks gestation of SNOMED Code(s): 48586209 Code(s): Z3A.38 - 38 WEEKS GESTATION OF Status: Acute Current Visit: Yes (2) Gestational hypertension SNOMED Code(s): 187224858 Code(s): O13.9 - GESTATIONAL HTN W/O SIGNIFICANT PROTEINURIA, UNSP TRIMESTER Status: Acute Current Visit: Yes Qualifiers: Trimester: third trimester Qualified Code(s): O13.3 - Gestational [-induced] hypertension without significant proteinuria, third trimester (3) Vaginal delivery SNOMED Code(s): 328371338 Code(s): O80 - ENCOUNTER FOR FULL-TERM UNCOMPLICATED DELIVERY Status: Acute Current Visit: No - Problem List Review Problem List Initiated/Reviewed/Updated: Yes - My Orders Last 24 Hours: My Active Orders 02/16/20 10:09 Acetaminophen [TylenoL] 650 mg PO Q4H PRN Benzocaine/Menthol [Dermoplast Pain Relief [place]] See Dose Instructions TOP ASDIRECTED PRN Ibuprofen [Motrin] 600 mg PO Q6H PRN witch eRmy [Tucks] 1 pad TOP ASDIRECTED PRN Heat Therapy [OM.PC] PRN 02/16/20 10:09 Activity as Tolerated [RC] PER UNIT ROUTINE Vital Signs [RC] 03,09,15,21 Assess Lochia [WOMSER] Per Unit Routine Assess Uterine Involution [WOMSER] Per Unit Routine Breast Pump [WOMSER] Per Unit Routine Ice Therapy [OM.PC] Per Unit Routine Perineal Care [OM.PC] Per Unit Routine Peripheral IV Discontinue [OM.PC] Routine Sitz Bath [OM.PC] Per Unit Routine 02/16/20 Lunch Regular Diet [DIET] 02/17/20 07:04 Ready for Discharge [RC] PER UNIT ROUTINE 02/17/20 10:09 Heat Therapy [OM.PC] PRN - Assessment Assessment:: PPD#1 - Plan Plan:: * Routine cares * Breast feeding * Monitor BP's closely - have been normal expect for one incorrect value with machine that was normal with immediate manual repeat. Will need BP check in office next week * Discharge home today
--- NOTE | 2020-02-17 07:04 | PCM.DCSUM1 ---
Discharge Summary - Discharge Data Discharge Date: 02/17/20 Discharge Disposition: Home, Self-Care 01 Condition: Good - Referral to Home Health Primary Care Physician: Laila Cho MD - Discharge Diagnosis/Problem(s) (1) 38 weeks gestation of SNOMED Code(s): 63046786 ICD Code: Z3A.38 - 38 WEEKS GESTATION OF Status: Acute Current Visit: Yes (2) Gestational hypertension SNOMED Code(s): 060077677 ICD Code: O13.9 - GESTATIONAL HTN W/O SIGNIFICANT PROTEINURIA, UNSP TRIMESTER Status: Acute Current Visit: Yes Qualifiers: Trimester: third trimester Qualified Code(s): O13.3 - Gestational [-induced] hypertension without significant proteinuria, third trimester (3) Vaginal delivery SNOMED Code(s): 524510237 ICD Code: O80 - ENCOUNTER FOR FULL-TERM UNCOMPLICATED DELIVERY Status: Acut e Current Visit: No - Patient Summary/Data Complications: None Consults: None Recommended Follow-up Testing/Procedures: Follow up in 1 week for BP check and 3 weeks for check Hospital Course: 34 y/o at 38 5/7 wks found to have mild range BPs c/w gestational HTN. Induction done with cytotec and then Pitocin/AROM. Progressed well and underwent an uncomplicated . See delivery note. did well with mostly normal BP's. Discharged home on PPD#1 - Patient Instructions Diet: Regular Diet as Tolerated Activity: As Tolerated Activity, Other: Pelvic rest for 6 weeks Driving: May Drive Today Showering/Bathing: May Shower Showering/Bathing, Other: May Bathe Notify Provider of: Fever, Increased Pain, Swelling and Redness, Drainage, Nausea and/or Vomiting - Discharge Plan *PRESCRIPTION DRUG MONITORING PROGRAM REVIEWED*: No *COPY OF PRESCRIPTION DRUG MONITORING REPORT IN PATIENT YASMIN: No Home Medications: Home Meds No122/Iron/Folic Acid [ Multi Tablet] 1 each PO DAILY 09/19/17 [History] Arvin-3/DHA/Epa/Fish Oil [Fish Oil 1,000 mg Softgel] 1 each PO DAILY 02/15/20 [History] Ibuprofen [Motrin] 600 mg PO Q6H PRN tablet 02/16/20 [Rx] Patient Handouts: Care After Vaginal Delivery Referrals: Laila Cho MD [Primary Care Provider] - (1 week for BP check 3 weeks for check ) - Discharge Summary/Plan Comment DC Time >30 min.: No - Patient Data Vitals - Most Recent: Last Vital Signs Temp 36.9 C 02/17/20 03:23 Pulse 64 02/17/20 03:23 Resp 14 02/17/20 03:23 BP 115/70 02/17/20 03:23 Pulse Ox 99 02/17/20 03:23 Weight - Most Recent: 88.451 kg Med Orders - Current: Current Medications Acetaminophen (Tylenol) 650 mg PO Q4H PRN PRN Reason: mild pain or fever Benzocaine/Menthol (Dermoplast Pain Relief [place]) 0 gm TOP ASDIRECTED PRN PRN Reason: Perineal Comfort Measure Ibuprofen (Motrin) 600 mg PO Q6H PRN PRN Reason: Mild pain or fever Last Admin: 02/16/20 18:05 Dose: 600 mg Documented by: Yuko Benitez) 1 pad TOP ASDIRECTED PRN PRN Reason: Perineal Comfort Measure Discontinued Medications Diphenhydramine HCl (Benadryl) 25 mg IVPUSH Q6H PRN PRN Reason: pruritis Ephedrine Sulfate (Ephedrine Sulfate) 5 mg IVPUSH ASDIRECTED PRN PRN Reason: Hypotension Fentanyl (Sublimaze) 100 mcg EPIDUR Q3H PRN PRN Reason: Pain Fentanyl/Bupivacaine HCl (Fentanyl/Bupivacaine/Ns 2 Mcg-0.125% 100 Ml) 100 ml EPIDUR ASDIRECTED PRN PRN Reason: Pain Oxytocin/Lactated Ringer's (Pitocin In Lr 10 Units/1,000 Ml) 10 unit in 1,000 mls @ 12 mls/hr IV TITRATE SEEMA; Protocol Last Titration: 02/16/20 08:00 Dose: 9 munits/min, 54 mls/hr Documented by: Oxytocin/Lactated Ringer's (Pitocin In Lr 10 Units/1,000 Ml) 10 unit in 1,000 mls @ 500 mls/hr IV .CONTINUOUS SEEMA Lactated Ringer's (Ringers, Lactated) 1,000 mls @ 40 mls/hr IV ASDIRECTED SEEMA Last Admin: 02/16/20 03:41 Dose: 40 mls/hr Documented by: Misoprostol (Cytotec) Confirm Administered Dose 25 mcg .ROUTE .STK-MED ONE Stop: 02/15/20 16:37 Last Admin: 02/15/20 16:40 Dose: 25 mcg Documented by: Misoprostol (Cytotec) 25 mcg PO ONETIME ONE Stop: 02/15/20 20:31 Misoprostol (Cytotec) 25 mcg VAG Q4H SEEMA Stop: 02/16/20 00:31 Last Admin: 02/16/20 03:02 Dose: Not Given Documented by: Nalbuphine HCl (Nubain) 10 mg IVPUSH Q2H PRN PRN Reason: Pain Last Admin: 02/16/20 07:12 Dose: 10 mg Documented by: Ondansetron HCl (Zofran) 4 mg IVPUSH Q4H PRN PRN Reason: Nausea/Vomiting Sodium Chloride (Saline Flush) 10 ml FLUSH ASDIRECTED PRN PRN Reason: Keep Vein Open
[2020-02-17 10:38] VITALS: BP 127/91; PULSE 73
== END 2020-02-17 11:50 | disposition home or self-care (01) | DRG 560 ==
LOC: JD.OBCHECK 14:37 → JD.OB 14:44 → JD.OBCHECK 14:59 → JD.OB 15:12 → OBSVTOIN 02-16 08:52 → JD.OB 02-16 08:53
PROVIDERS: ADMIT Obstetrics & Gynecology; ATTEND Obstetrics & Gynecology
PROC: 10E0XZZ Delivery of Products of Conception, External Approach (ICD-10-PCS; principal; 2020-02-16)
PROC: 10907ZC Drainage of Amniotic Fluid, Therapeutic from Products of Conception, Via Natural or Artificial Opening (ICD-10-PCS; 2020-02-16)
PROC: 3E0P7VZ Introduction of Hormone into Female Reproductive, Via Natural or Artificial Opening (ICD-10-PCS; 2020-02-16)
PROC: 3E033VJ Introduction of Other Hormone into Peripheral Vein, Percutaneous Approach (ICD-10-PCS; 2020-02-16)
DX: O13.4 Gestational [pregnancy-induced] hypertension without significant proteinuria, complicating childbirth (principal); Z3A.38 38 weeks gestation of pregnancy; Z37.0 Single live birth; O69.81X0 Labor and delivery complicated by cord around neck, without compression, not applicable or unspecified; Z20.828 Contact with and (suspected) exposure to other viral communicable diseases
CPT/HCPCS: 36415; 59025; 59409; 82565; 82570; 84156; 84450; 84460; 85027; 86592; 86850; 86900; 86901; A9270-GY; J2300; J2590; J7120; U0002